=== PATIENT | male | born 1985 | race Caucasian/White ===

== ENCOUNTER 2016-08-11 19:23 | Emergency (ER) | payer OTHER ==
[2016-08-11] MEDS ORDERED: IOPAMIDOL 370 (76%) 100 ML VIAL IV ONE (19:24)
[2016-08-11 21:52] LABS: ABSOLUTE NEUTROPHIL COUNT 4.5 K/mm3 (1.8-7.7); BASO # 0.1 K/mm3 (0.0-0.2); BASO % 0.6 % (0.2-1.0); EOS # 0.2 (0.0-0.5); EOS % 2.4 % (0.9-2.9); HEMATOCRIT 42.2 % (32.0-52.0); IMM NEUT% 0.2 % (0-1); LYMPH # 2.7 (1.0-4.8); MEAN CELL VOLUME 87.6 fl (80.0-94.0); MEAN CORPUSCULAR HEMOGLOBIN 31.1 pg (27.0-31.0); MEAN CORPUSCULAR HGB CONC 35.5 g/dl (33.0-37.0); MEAN PLATELET VOLUME 9.3 fl (7.4-10.4); MONO # 0.6 (0.0-0.8); MONO % 7.9 % (4-12); NEUT % 55.9 % (43-75); PLATELET COUNT 227 K/mm3 (130-400)
[2016-08-11 22:11] LABS: BLOOD UREA NITROGEN 16 mg/dL (7-25); BUN/CREATININE RATIO 20 (6-20); C-REACTIVE PROTEIN < 0.3 mg/dl (<1.0); CALCIUM 9.3 mg/dL (8.6-10.3); GLOMERULAR FILTRATION RATE 114 mL/min (60-116)
[2016-08-11] MEDS ORDERED: KETOROLAC TROMETHAMINE 30 MG/ML 1 ML VIAL ONE (23:30)
[2016-08-11] MEDS ORDERED: SULFAMETHOXAZOLE 800 MG/TRIMETHOPRIM 160 MG TABLET ONE (23:30)
--- NOTE | 2016-08-12 08:02 | CT ---
LOWER EXT W/ CON LT History: Medial foot pain and swelling without injury. Comparison: None. Procedure: 1 mm axial images were obtained through the foot following the administration of 100cc's of Isovue-370 intravenous contrast. Stacked reconstructed 3 mm images were then photographed in the axial, coronal and sagittal planes. Findings: Images demonstrate a normal appearance of the visualized osseous structures. There is no gross cortical destruction or evidence of an acute fracture visualized. The soft tissue structures appear to be appropriate. There is no focal fluid collection or evidence of a discrete soft tissue mass observed. The subcutaneous tissue structures are relatively unremarkable. No radiopaque foreign body is observed. Impression: 1. No discrete osseous abnormality identified. 2. No focal fluid collection or radiopaque foreign body observed. The findings were called to the emergency room at 2250 hours, 08/11/2016, by [facility].
== END 2016-08-12 01:14 ==
LOC: ED 19:23
DX: M79.672 Pain in left foot (principal); M79.89 Other specified soft tissue disorders
CPT/HCPCS: 83605; 86141; 85025; 80048; 85651; 84550; 73701; 99284 ×2; 96374; A9270; J1885; Q9967